=== PATIENT | female | born 1995 | race Caucasian/White ===

== ENCOUNTER 2018-06-25 12:01 | Emergency (ER) | payer MEDICAID ==
[~2018-06-25] VITALS: Ht 149.9 cm; Wt 53.7 kg
[~2018-06-25 12:01] MED LIST: CLA10T PO; LACO200T2 PO; LORA1TAB PO; NORG1TAB13 PO; TOP25T PO
[2018-06-25] MEDS ORDERED: normal saline 1000ML IV soln IVB ONE ×2 (14:15→17:35)
[2018-06-25] MEDS ORDERED: LORazepam 2 mg/ml vial IV ONE (14:15)
[2018-06-25] MEDS ORDERED: topiramate 100mg tablet PO ONE (14:20)
[2018-06-25 14:28] LABS: BASOPHILS % (AUTO) 0.1 % (0-1); EOSINOPHILS % (AUTO) 0.1 % (0-6); HEMATOCRIT 39.8 % (35.0-45.0); HEMOGLOBIN 13.4 g/dl (12.0-16.0); LYMPHOCYTES # (AUTO) 0.3 X10'3 (1.1-4.8); LYMPHOCYTES % (AUTO) 3.4 % (21-51); MEAN CORPUSCULAR HEMOGLOBIN 30.1 PG (27.0-31.0); MEAN CORPUSCULAR HGB CONC 33.6 % (33.0-36.5); MEAN CORPUSCULAR VOLUME 89.5 FL (78-98); MEAN PLATELET VOLUME 9.1 FL (7.4-10.4); MONOCYTES # (AUTO) 0.5 X10'3 (0-0.9); MONOCYTES % (AUTO) 5.3 % (2-12); NEUTROPHILS # (AUTO) 7.8 X10'3 (1.8-7.7); NEUTROPHILS % (AUTO) 91.1 % (42-75); PLATELET COUNT 325 X10'3 (140-440); RED BLOOD COUNT 4.45 X10'6 (4.20-5.60); RED CELL DISTRIBUTION WIDTH 12.1 % (11.5-14.5); WHITE BLOOD COUNT 8.6 X10'3 (4.5-11.0)
[2018-06-25 14:42] LABS: ALANINE AMINOTRANSFERASE 22 U/L (12-78); ALBUMIN 3.5 G/DL (3.4-5.0); ALBUMIN/GLOBULIN RATIO 0.9 (1.1-1.5); ALKALINE PHOSPHATASE 51 IU/L (46-116); ANION GAP 17 (8-16); ASPARTATE AMINO TRANSFERASE 24 U/L (10-37); BILIRUBIN,TOTAL 0.4 MG/DL (0.1-1.0); BLOOD UREA NITROGEN 12 MG/DL (7-18); BUN/CREATININE RATIO 12.9 (6.6-38.0); CALCIUM 9.1 MG/DL (8.5-10.1); CHLORIDE 104 MMOL/L (99-107); CREATININE 0.93 MG/DL (0.40-0.90); GLUCOSE 108 MG/DL (70-104); POTASSIUM 3.3 MMOL/L (3.5-5.1); SODIUM 140 MMOL/L (135-145); TOTAL CARBON DIOXIDE 18.9 MMOL/L (24-32); TOTAL PROTEIN 7.6 G/DL (6.4-8.2); VALPROATE < 3.0 UG/ML (50-100); eGFR 76 ML/MIN
[2018-06-25 14:43] LABS: CARBAMAZEPINE (TEGRETOL) < 0.5 UG/ML (4.0-12.0)
[2018-06-25 15:44] LABS: MAGNESIUM 1.3 MG/DL (1.5-2.4)
[2018-06-25 16:45] LABS: CLARITY,URINE CLEAR (Clear); COLOR,URINE YELLOW (Yellow); GLUCOSE, URINE NEGATIVE (Neg); KETONES,URINE >=80 mg/dl (Neg); LEUKOCYTE ESTERASE ,URINE NEGATIVE (Neg); NITRITES, URINE NEGATIVE (Neg); OCCULT BLOOD,URINE NEGATIVE (Neg); PROTEIN,URINE NEGATIVE (Neg); UROBILINOGEN,URINE 0.2 E.U/dL (0.2-1.0)
[2018-06-25 16:46] LABS: UA COLLECTION TYPE CLN CATCH MIDSTREAM
[2018-06-25] MEDS ORDERED: MAGN200T8 PO (17:26)
[2018-06-25] MEDS ORDERED: ketorolac tromethamine 15mg/ml inj. IV ONE (17:35)
[2018-06-25 18:50] VITALS: BP_DIAS 46
[2018-06-25 19:07] VITALS: BP_SYST 92
== END 2018-06-25 19:10 | disposition home or self-care (01) ==
LOC: ER 12:01
DX: S00.83XA Contusion of other part of head, initial encounter (principal); E83.42 Hypomagnesemia; I95.9 Hypotension, unspecified; G40.901 Epilepsy, unspecified, not intractable, with status epilepticus; Z98.890 Other specified postprocedural states; Z90.89 Acquired absence of other organs; Z88.8 Allergy status to other drugs, medicaments and biological substances; Z79.899 Other long term (current) drug therapy; W22.8XXA Striking against or struck by other objects, initial encounter; Y93.89 Activity, other specified; Y92.413 State road as the place of occurrence of the external cause; Y99.9 Unspecified external cause status
CPT/HCPCS: 36415; 80053; 80156; 80164; 81003; 83735; 85025; 93005; 96361; 96374; 96375; 99284; J1885; J2060; J7030

== ENCOUNTER 2021-05-13 19:19 | Emergency (ER) | payer MEDICAID ==
[~2021-05-13] VITALS: Ht 149.9 cm; Wt 68.7 kg
[~2021-05-13 19:19] MED LIST changes: +MAGN200T8 PO
[2021-05-13] MEDS ORDERED: HYDROcodone/acetaminophen 10/325mg tab PO ONE (20:50)
[2021-05-13] MEDS ORDERED: proCHLORperazine 10 MG/2 ml inj IV ONE (21:00)
[2021-05-13] MEDS ORDERED: morphine 4 MG/ML inj SYRINge IV ONE (22:15)
[2021-05-13 22:32] VITALS: BP 115/71
== END 2021-05-13 22:52 ==
LOC: ER 19:20
DX: S82.141A Displaced bicondylar fracture of right tibia, initial encounter for closed fracture (principal); S83.004A Unspecified dislocation of right patella, initial encounter; M79.672 Pain in left foot; M25.561 Pain in right knee; Z86.69 Personal history of other diseases of the nervous system and sense organs; Z98.890 Other specified postprocedural states; Z88.8 Allergy status to other drugs, medicaments and biological substances; Z79.899 Other long term (current) drug therapy; Y93.89 Activity, other specified; Y92.89 Other specified places as the place of occurrence of the external cause; Y99.8 Other external cause status
CPT/HCPCS: 73564; 73630; 96374; 96375; 99285; J0780; J2270

== ENCOUNTER 2023-11-04 19:00 | Emergency (ER) | payer MEDICAID ==
[~2023-11-04] VITALS: Ht 149.9 cm; Wt 64.1 kg
[2023-11-04] MEDS: levetiracetam inj 1,000 MG in normal saline 100ml IV soln 100 ML IV ONE (20:12)
[2023-11-04 20:13] LABS: BASOPHILS % (AUTO) 0.1 % (0-1); EOSINOPHILS % (AUTO) 0 % (0-6); HEMATOCRIT 35.1 % (35.0-45.0); HEMOGLOBIN 11.5 g/dl (12.0-16.0); LYMPHOCYTES # (AUTO) 1.7 X10'3 (1.1-4.8); LYMPHOCYTES % (AUTO) 14.9 % (21-51); MEAN CORPUSCULAR HEMOGLOBIN 27.3 PG (27.0-31.0); MEAN CORPUSCULAR HGB CONC 32.8 g/dL (33.0-36.5); MEAN CORPUSCULAR VOLUME 83.2 FL (78-98); MEAN PLATELET VOLUME 7.6 FL (7.4-10.4); MONOCYTES # (AUTO) 0.8 X10'3 (0-0.9); MONOCYTES % (AUTO) 7.2 % (2-12); NEUTROPHILS % (AUTO) 77.8 % (42-75); PLATELET COUNT 533 X10'3 (140-440); RED BLOOD COUNT 4.22 X10'6 (4.20-5.60); RED CELL DISTRIBUTION WIDTH 14.6 % (11.5-14.5); WHITE BLOOD COUNT 11.5 X10'3 (4.5-11.0)
[2023-11-04 20:19] LABS: ALBUMIN 3.1 G/DL (3.4-5.0); ANION GAP 9 (8-16); BLOOD UREA NITROGEN 7 MG/DL (7-18); BUN/CREATININE RATIO 7.6 (10.0-20.0); CALCIUM 8.7 MG/DL (8.5-10.1); CHLORIDE 107 MMOL/L (99-107); CREATININE 0.92 MG/DL (0.40-0.90); GLUCOSE 108 MG/DL (70-104); POTASSIUM 3.9 MMOL/L (3.5-5.1); SODIUM 140 MMOL/L (135-145); eCRCL 63 ML/MIN; eGFR 74 ML/MIN
[2023-11-04 20:35] LABS: BILIRUBIN,URINE NEGATIVE (Neg); CLARITY,URINE CLEAR (Clear); COLOR,URINE STRAW (Yellow); GLUCOSE, URINE NEGATIVE (Neg); KETONES,URINE NEGATIVE (Neg); LEUKOCYTE ESTERASE ,URINE TRACE (Neg); NITRITES, URINE NEGATIVE (Neg); OCCULT BLOOD,URINE NEGATIVE (Neg); PROTEIN,URINE NEGATIVE (Neg); UROBILINOGEN,URINE 0.2 E.U/dL (0.2-1.0)
[2023-11-04 20:41] LABS: UA COLLECTION TYPE VOIDED
[2023-11-04 20:53] LABS: BACTERIA,URINE NONE SEEN /HPF (Neg); MUCUS STRANDS FEW /LPF (Neg); RBC,URINE 0-2 /HPF (0-2); SQUAMOUS EPITHELIAL CELL,UR FEW /LPF (FEW); WBC,URINE 0-4 /HPF (0-4)
[2023-11-04] MEDS: levetiracetam inj 2,000 MG in normal saline 250ml IV soln 250 ML IV ONE (22:02)
[2023-11-05] MEDS: midazolam 1 mg/ML 2ml injection IV ONE (00:09)
[2023-11-05] MEDS: LORazepam 2 mg/ml vial IV ONE (00:12)
[2023-11-05 04:03] VITALS: BP 124/77; PULSE 117; RESP 16; TEMP 98.5; O2SAT 97
== END 2023-11-05 01:40 | disposition home or self-care (01) ==
LOC: ER 19:01
DX: G40.909 Epilepsy, unspecified, not intractable, without status epilepticus (principal); Z79.899 Other long term (current) drug therapy; Z88.8 Allergy status to other drugs, medicaments and biological substances
CPT/HCPCS: 36415; 71045; 80048; 81001; 82948; 83735; 85025; 87088; 93005; 96365; 96366; 96375; 99285; J1953; J2250; J3490; J7050

== ENCOUNTER 2024-12-08 18:11 | Emergency (ER) | payer MEDICAID ==
[~2024-12-08] VITALS: Ht 157.5 cm; Wt 61.2 kg
[2024-12-08 18:11] VITALS: BP 113/60; PULSE 97; TEMP 98.6; O2SAT 99
--- NOTE | 2024-12-08 19:00 | Physician Documentation ---
History of Present Illness ~ Chief Complaint: Wound Stated Complaint: "BUMP ON FACE" Time Seen by MD: 18:18 Primary Medical Doctor: ANA MARÍA MORENO; yusef ABRAHAM HPI This is a 29-year-old female who presents with two days of pain and swelling to her right lower face without involvement of oral mucosa or vermilion border, patient reports that it has been draining some material. Patient reports no fever. Tetanus within 5 years?: No Medication Reconciliation Allergies: Coded Allergies: ondansetron HCl (Verified Allergy, Unknown, 12/08/24) promethazine HCl (Verified Allergy, Unknown, 12/08/24) Scheduled Lacosamide (Vimpat), 400 MG PO BID, (Reported) Loratadine* (Claritin*), 10 MG PO DAILY, (Reported) Lorazepam* (Ativan*), 2 MG PO HS, (Reported) Magnesium Oxide (Mag-Oxide), 1 TAB PO DAILY Norgestimate-Ethinyl Estradiol (Tri-Sprintec), 1 TABLET PO DAILY, (Reported) Sulfamethoxazole/Trimethoprim (Bactrim Ds Tablet), 1 TAB PO Q12H Topiramate* (Topamax*), 50 MG PO BID, (Reported) Past Medical History Past Medical History: Headache, Seizures Past Surgical History: brain surgery, other Other Past Surgical History: right frontal lobectomy in 2009 Alcohol Use: None Drug Use: none Lives with: Mother Lives In: Home Occupation: student Past Social History: second hand smoke Review of Systems ROS Pain and swelling to right cheek as stated above in the HPI, otherwise all systems are reviewed and negative. Physical Exam Vital Signs: Temperature: 98.6, Source: Temporal, Heart Rate: 97, Respiratory Rate: 16, BP: 113/60, Pulse Oximetry: 99, Weight: 61.200 Oxygen Flow Rate: 0 Physical Exam VITALS: Reviewed and as above. GENERAL: Alert, nontoxic appearing, no apparent distress. HEENT: No perioral or periorbital swelling, no open wounds to oral cavity, no drooling, no submandibular swelling, no elevation of the tongue RESPIRATORY: No increased work of breathing, no respiratory distress, speaking in full clear sentences SKIN: Skin of right lower face 1.5 cm x 1.5 cm area of induration and fluctuance with minimal erythema with a single central open area without active drainage Procedures I & D Procedure : Site: Right lower cheek Anesthesia: Lidocaine w/ Epi Volume Anesthetic (mls): 4 Blade Size: 11 Incision: mass incised, pus drained Tolerated Procedure Well?: yes, no complications Progress Results/Orders Results/Orders Orders - SONY HOUSTON Cult (Aer) Routine C&S+Gram St (12/08/24 18:52) Laceration/I&D Tray Set Up (12/08/24 18:52) Completed Orders - SONY HOUSTON Ketorolac Trometh 15mg/Ml Vial (Toradol (12/08/24 18:55) Lidocaine 1% W/Epi 1:100,000 (Xylocaine (12/08/24 19:10) Lidocaine/Prilocaine Cream (Emla Cream) (12/08/24 19:25) Lorazepam Tablet (Ativan Tablet) (12/08/24 20:20) Sulfamethox/Trimetho. Ds Tab (Septra Ds (12/08/24 22:10) Medications Received in ER Medications (Trade) Dose Ordered Sig/Derick Route PRN Reason Start Time Stop Time Status Last Admin Dose Admin (Toradol injection) 15 mg ONCE ONCE IM 12/08/24 18:55 12/08/24 18:56 DC 12/08/24 19:13 15 MG (EMLA cream) 5 gm ONCE ONCE TP 12/08/24 19:25 12/08/24 19:26 DC 12/08/24 19:36 5 GM (Ativan tablet) 1 mg ONCE ONCE PO 12/08/24 20:20 12/08/24 20:21 DC 12/08/24 20:35 1 MG (Septra DS tab) 1 tab ONCE ONCE PO 12/08/24 22:10 12/08/24 22:11 DC 12/08/24 22:21 1 TAB Vital Signs 12/08/24 12/08/24 18:11 19:13 Temp 98.6 Pulse 97 Resp 16 16 B/P (MAP) 113/60 Pulse Ox 99 O2 Flow Rate 0 Medical Decision Making Findings This otherwise healthy and well appearing 29-year-old female presented with pain and swelling to right lower cheek worsening over the past two days. Physical exam consistent with uncomplicated abscess to the right lower face. History is reassuring as patient reports no fever, chills, or other systemic symptoms. There is no evidence of rapidly progressing symptoms, crepitus, pain out of proportion, pain away from site or other signs/symptoms concerning for necrotizing fasciitis, myositis, or other deep tissue infection. I considered other high-risk diagnoses such as acute osteomyelitis, deep space abscess, septic joint, foreign body, or deep vein thrombosis or septic phlebitis. Abscess was incised and drained without complication. Physical exam is otherwise benign, patient is non-toxic and well-appearing, afebrile, hemodynamically stable, non-tachypneic, non-tachycardic, and room air SpO2 of 99% interpreted as normal and adequate. Patient is appropriate for outpatient follow up. Patient given strict return precautions including rapidly progressing symptoms, pain out of proportion/severe pain, mucosal involvement, and/or fever > 100.4. Differential Dx:Considerations: Include: Cellulitis, Other (Periorbital cellulitis, Ben's angina, referred dental pain, dental abscess) Departure Disposition: HOME / SELF CARE / HOMELESS Impression: Primary Impression: Abscess Condition: Improved Discharge Instructions: Skin Abscess Additional Instructions: Use warm moist compresses on the area 2-3 times a day, then clean the area to help it drain. Otherwise keep the area clean dry and covered. Please take the antibiotics as prescribed. Please follow up with your primary care provider in the next few days for a wound recheck. Please return to the emergency department for any new or worsening concerning symptoms including but not limited to worsening pain and swelling to the area, difficulty breathing, difficulty swallowing, or if she develops a fever over 100.4 that does not lower with ibuprofen or Tylenol. Referrals: NO PRIMARY CARE PROVIDER (PCP) Prescriptions Sulfamethoxazole/Trimethoprim (Bactrim Ds Tablet) 800 Mg-160 Mg Tablet 1 TAB PO Q12H for 10 Days, #20 TAB May stop taking after seven days if symptoms have resolved Prov: SONY HOUSTON 12/08/24 Education Educated: Patient Educated regarding: diagnosis, treatment, prognosis, need for follow up Signature Scribe Signature: No scribe Attestation: The note accurately reflects work and decisions made by me.BRUNO Matthews 12/09/24 02:11 SONY HOUSTON Dec 08, 2024 19:00
[2024-12-08 19:13] VITALS: RESP 16
[2024-12-08] MEDS: ketorolac trometh 15mg/ml vial 15 MG/ML ML IM ONE (19:13)
[2024-12-08] MEDS: LIDOcaine/PRILOcaine 5gm cream TP ONE (19:36)
[2024-12-08] MEDS: LIDOcaine 1% W/epiNEPHrine 1:100,000 20ml vial IJ ONE (20:20)
[2024-12-08] MEDS: LORazepam 1 MG tablet PO ONE (20:35)
[2024-12-08] MEDS ORDERED: SULF1TAB49 PO (22:07)
[2024-12-08] MEDS: sulfamethoxazole/trimethoprim DS (800/160mg) tablet PO ONE (22:21)
[2024-12-09] MEDS ORDERED: CLOT30CR19 TOP (14:02)
== END 2024-12-08 22:27 | disposition home or self-care (01) ==
LOC: ER 18:11
DX: L02.01 Cutaneous abscess of face (principal)
CPT/HCPCS: 10060; 87070; 87077; 87186; 96372; 99283; J1885; A6449

== ENCOUNTER → 2024-12-10 | Emergency (ER) | payer MEDICAID ==
[~2024-12-10] VITALS: Ht 149.9 cm; Wt 53.2 kg
[~2024-12-10] MED LIST changes: +CLOT30CR19 TOP; +SULF1TAB49 PO
[2024-12-10 12:26] VITALS: BP 111/69; PULSE 96; RESP 17; TEMP 97.9; O2SAT 99
--- NOTE | 2024-12-10 12:33 | Physician Documentation ---
History of Present Illness ~ Stated Complaint: CYST Primary Medical Doctor: ANA MARÍA MORENO; yusef ABRAHAM [facility] HPI 29-year-old female presents to the ED after recently having an I and D done on an abscess on her lower lip. She has been compliant with medication however she has had increased pain swelling and returns for further evaluation onto her primary doctor who indicated she will likely need a CT for concerns of os teomyelitis Tetanus Within 5 Years: No Medication Reconciliation Allergies: Coded Allergies: ondansetron HCl (Verified Allergy, Unknown, 12/08/24) promethazine HCl (Verified Allergy, Unknown, 12/08/24) Scheduled Clotrimazole (Clotrimazole), 1 APPLIC TOP Q12H Lacosamide (Vimpat), 400 MG PO BID, (Reported) Loratadine* (Claritin*), 10 MG PO DAILY, (Reported) Lorazepam* (Ativan*), 2 MG PO HS, (Reported) Magnesium Oxide (Mag-Oxide), 1 TAB PO DAILY Norgestimate-Ethinyl Estradiol (Tri-Sprintec), 1 TABLET PO DAILY, (Reported) Sulfamethoxazole/Trimethoprim (Bactrim Ds Tablet), 1 TAB PO Q12H Topiramate* (Topamax*), 50 MG PO BID, (Reported) Past Medical History Past Medical History: Headache, Seizures Past Surgical History: brain surgery, other Other Past Surgical History: right frontal lobectomy in 2009 Alcohol Use: None Drug Use: none Lives with: Mother Lives In: Home Occupation: student Past Social History: second hand smoke Review of Systems All Other Systems at this time: Reviewed and Negative ROS As stated above in the HPI, otherwise all systems are reviewed and negative. Physical Exam Physical Exam General: Alert, nontoxic appearing. HEENT: PERRL, EOMI, no injection, moist mucous membranes. Lower lip as closely swollen with what appears to be a purulent head on the medial aspect of lower lip., no submandibular swelling Neck: Full range of motion. Respiratory: Lungs clear, no respiratory distress. Psychiatric: Normal mood and affect. Skin: Normal color, warm and dry. No edema, no ecchymosis. Progress Results/Orders Results/Orders Vital Signs 12/10/24 12:26 Temp 97.9 Pulse 96 Resp 17 B/P (MAP) 111/69 Pulse Ox 99 Medical Decision Making Findings Patient has eloped from the lobby Departure Disposition: 07 LEFT AWOL/ELOPED Impression: Primary Impression: Abscess Referrals: NO PRIMARY CARE PROVIDER (PCP) Signature Scribe Signature: d Attestation: Scribed for Emergency,Department by Rupal Garner - [facility] . 12/10/24 18:16 RUPAL GARNER NP Dec 10, 2024 12:33
== END | disposition left against medical advice (07) ==
LOC: ER 12:21
DX: K13.0 Diseases of lips (principal); Z88.8 Allergy status to other drugs, medicaments and biological substances; Z79.899 Other long term (current) drug therapy
CPT/HCPCS: 99281; 99282